=== PATIENT | female | born 1990 | race Caucasian/White ===

== ENCOUNTER 2016-12-14 12:38 | Emergency (ER) | payer SELFPAY ==
[~2016-12-14 12:38] MED LIST: ALBUTEROL SULF8.5 G1 IH; ALBUTEROL17 GM INH; AMOXICILLIN500 M1 PO; CIPRO500 MG PO; DOXYCYCLINE; EXCEDRIN MIGRA1 EAC3 PO; FLAGYL250 M1 PO; FLAGYL500 MG PO; IBUPROFEN800 M1 PO; IRON1 TA1 PO; KEFLEX500 MG PO; LAMICTAL25 MG PO; LEXAPRO10 M2; LEXAPRO20 M2 PO; LORTAB 5-325 M1 EAC1 PO; MACROBID 100 M100 MG PO; MEDROL4 M2 PO; MULTI VITAMIN1 EACH PO; NAPROSYN500 M1 PO; NO MEDS CURRENTLY; NORCO 5/3251 TAB PO; OMNICEF300 MG PO; ORPHENADRINE C100 M1 PO; PERCOCET 5-3251 EACH PO; PREDNISONE10 MG PO; PRENATAL1 EACH PO; PYRIDIUM200 MG PO; SPRINTEC 28 DA1 EACH PO
[2016-12-14] MEDS ORDERED: SPRINTEC 28 DA1 EACH PO (12:58)
[2016-12-14] MEDS ORDERED: LEXAPRO10 M2 PO (12:58)
[2016-12-14] MEDS ORDERED: PREDNISONE10 M1 PO (14:22)
[2016-12-14] MEDS ORDERED: PROAIR HFA8.5 GM INH (14:22)
== END 2016-12-14 14:30 ==
LOC: EDMED 12:38
DX: J45.901 Unspecified asthma with (acute) exacerbation (principal); F17.200 Nicotine dependence, unspecified, uncomplicated
CPT/HCPCS: J7512